=== PATIENT | female | born 2000 | race African-American/Black ===

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

== ENCOUNTER 2019-02-05 22:18 | Emergency (ER) | payer SELFPAY ==
[2019-02-06 00:03] LABS: APPEARANCE,URINE CLEAR; BILIRUBIN,URINE NEGATIVE (NEGATIVE); COLOR,URINE YELLOW; GLUCOSE, URINE NEGATIVE (NEGATIVE); KETONES,URINE NEGATIVE (NEGATIVE); LEUKOCYTE ESTERASE,URINE TRACE (NEGATIVE); NITRITE,URINE NEGATIVE (NEGATIVE); PROTEIN,URINE 30 mg/dL (NEGATIVE); URINE SPECIFIC GRAVITY 1.013; UROBILINOGEN,URINE NEGATIVE mg/dL (<2.0)
--- NOTE | 2019-02-06 00:46 | ER Document Report ---
ED GI/ - General Chief Complaint: Abdominal Pain Stated Complaint: ABDOMINAL PAIN,VAGINAL BLEEDING Time Seen by Provider: 02/06/19 00:32 Primary Care Provider: MORELIA CASTRO MD [Primary Care Provider] - Follow up as needed Notes: Patient is a 18-year-old female that comes to the emergency department for chief complaint of intermittent lower abdominal cramping for the past 2 weeks. She states earlier she had some blood in her urine but this also resolved. She denies dysuria, flank pain, nausea or vomiting, fever/chills, vaginal discharge or bleeding. She states she had a normal menstrual cycle 2 weeks ago. She is sexually active. She states she is concerned she might be . She denies any surgeries, daily medications, or diagnosed past medical history. TRAVEL OUTSIDE OF THE [place] IN LAST 30 DAYS: No - Related Data Allergies/Adverse Reactions: No Known Allergies Allergy (Verified 02/05/19 23:29) Past Medical History - General Information source: Patient - Social History Smoking Status: Never Smoker Frequency of alcohol use: None Drug Abuse: None Lives with: Family Family History: Reviewed & Not Pertinent Patient has suicidal ideation: No Patient has homicidal ideation: No - Medical History Medical History: Negative Renal/ Medical History: Denies: Hx Peritoneal Dialysis Surgical Hx: Negative - Immunizations Immunizations up to date: Yes Hx Diphtheria, Pertussis, Tetanus Vaccination: Yes Review of Systems - Review of Systems Constitutional: No symptoms reported EENT: No symptoms reported Cardiovascular: No symptoms reported Respiratory: No symptoms reported Gastrointestinal: See HPI Genitourinary: See HPI Female Genitourinary: See HPI Musculoskeletal: No symptoms reported Skin: No symptoms reported Hematologic/Lymphatic: No symptoms reported Neurological/Psychological: No symptoms reported Physical Exam - Vital signs Vitals: Temp Pulse BP Pulse Ox 98.4 F 73 121/72 99 02/05/19 22:42 02/05/19 22:42 02/05/19 22:42 02/05/19 22:42 - Notes Notes: GENERAL: Alert, interacts well. No acute distress. HEAD: Normocephalic, atraumatic. EYES: Pupils equal, round, and reactive to light. Extraocular movements intact. ENT: Oral mucosa moist, tongue midline. Oropharynx unremarkable. Airway patent. NECK: Full range of motion. Supple. Trachea midline. LUNGS: Clear to auscultation bilaterally, no wheezes, rales, or rhonchi. No respiratory distress. HEART: Regular rate and rhythm. No murmur ABDOMEN: Soft, non-tender. Non-distended. Bowel sounds present in all 4 quadrants. GENITOURINARY: Deferred EXTREMITIES: Moves all 4 extremities spontaneously. No edema, normal radial and dorsalis pedis pulses bilaterally. No cyanosis. BACK: no cervical, thoracic, lumbar midline tenderness. No saddle anesthesia, normal distal neurovascular exam. NEUROLOGICAL: Alert and oriented x3. Normal speech. Cranial nerves II through XII grossly intact. PSYCH: Normal affect, normal mood. SKIN: Warm, dry, normal turgor. No rashes or lesions noted. Course - Re-evaluation Re-evalutation: Patient with no current complaints. Soft benign abdomen. Unremarkable vital signs. Physical exam otherwise unremarkable. Patient breathed a loud sigh of relief when I told her test was negative. Her urinalysis is unremarkable. I did recommend because of her 2 weeks of intermittent lower abdominal pain that we perform a pelvic exam, initially patient stated agreement with this, then she changed her mind and said instead she is ready to go. She states she will follow-up outpatient if needed and if symptoms continue, she states she will return if her symptoms return or become severe. These were discussed in detail. Stable at time of discharge. - Vital Signs Vital signs: Temp Pulse Resp BP Pulse Ox 98.6 F 75 14 115/64 98 02/06/19 01:23 02/06/19 01:23 02/05/19 22:58 02/06/19 01:23 02/06/19 01:23 - Laboratory Laboratory results interpreted by me: 02/05/19 22:50 Urine Protein 30 H Urine Blood SMALL H Ur Leukocyte Esterase TRACE H Discharge - Discharge Clinical Impression: Lower abdominal pain Condition: Stable Disposition: HOME, SELF-CARE Additional Instructions: Your test is negative. Your urinalysis does not show any concerning findings. Your evaluation is reassuring. The exact cause of your symptoms is uncertain at this time. Follow-up with primary care for additional evaluation and management. Return if you worsen including severe pain, vomiting, fever/chills, or any other concerning symptoms. Referrals: MORELIA CASTRO MD [Primary Care Provider] - Follow up as needed
[2019-02-06 01:49] VITALS: BP 115/64
== END 2019-02-06 01:26 | disposition home or self-care (01) ==
LOC: ER 22:18
DX: R10.30 Lower abdominal pain, unspecified (principal); N93.8 Other specified abnormal uterine and vaginal bleeding
CPT/HCPCS: 81001; 81025; 99284